=== PATIENT | female | born 1960 | race Caucasian/White ===

== ENCOUNTER 2017-01-02 09:20 | Emergency (ER) | payer BC ==
[~2017-01-02] VITALS: Ht 167.6 cm; Wt 85.0 kg
[~2017-01-02 09:20] MED LIST: IBUP-779 PO; SERT-112 PO
[2017-01-02 09:38] LABS: BASOPHILS % 1.1 % (0.0-2.0); EOSINOPHILS % 2.7 % (0.0-5.0); HEMATOCRIT. 39.7 % (36.0-48.0); HEMOGLOBIN. 13.4 g/dL (12.0-16.0); MEAN CORPUSCULAR HEMOGLOBIN 29.3 pg (28.0-32.0); MEAN CORPUSCULAR HGB CONC 33.6 g/dL (31.0-37.0); MEAN CORPUSCULAR VOLUME 87.2 fL (81.0-99.0); MEAN PLATELET VOLUME 8.2 fl (7.4-10.4); MONOCYTES % 6.8 % (2.0-8.0); NEUTROPHILS % 62.4 % (40.0-76.0); PLATELET 285 x1000/uL (130-400); RED BLOOD CELL COUNT 4.56 mill/uL (4.2-5.4); RED CELL DISTRIBUTION WIDTH 13.2 % (11.6-14.6); WHITE BLOOD COUNT 6.8 x1000/uL (4.5-11.0)
[2017-01-02 09:52] LABS: ALANINE AMINOTRANSFERASE 59 IU/L (13-61); ALBUMIN 3.7 g/dL (3.4-5.0); ANION GAP 13; CALCIUM 8.8 mg/dL (8.5-10.1); CARBON DIOXIDE 26 mEq/L (21-32); CHLORIDE 105 mEq/L (98-107); INDEX HEMOLYSI 2 (1-3); INDEX ICTERIC 1 (1-4); INDEX LIPEMIC 1 (1-3); NT PRO B-TYPE NATRIURETIC PEP 56 pg/mL (5-125); TROPONIN I < 0.02 ng/mL (0.00-0.04); UREA NITROGEN BLOOD 13 mg/dL (7-21); eGFR > 60 mL/min (>60)
[2017-01-02 09:54] LABS: PROTHROMBIN TIME 10.4 sec
[2017-01-02 13:42] VITALS: BP 125/65
== END 2017-01-02 13:44 | disposition home or self-care (01) ==
LOC: ER 09:22
DX: R20.0 Anesthesia of skin (principal); H53.8 Other visual disturbances; R53.1 Weakness; Z88.5 Allergy status to narcotic agent; Z98.890 Other specified postprocedural states
CPT/HCPCS: 36415; 70450; 70551; 80053; 83880; 84484; 85025; 85610; 93005; 99285

== ENCOUNTER → 2017-03-18 | Outpatient (CLI) | payer BC ==
[2017-03-18 08:20] LABS: T4 FREE 0.77 ng/dL (0.76-1.46)
[2017-03-18 08:30] LABS: FOLIC ACID (FOLATE) SERUM 17.4 ng/mL (>5.38)
== END | disposition home or self-care (01) ==
LOC: LAB 07:08
PROVIDERS: ATTEND Psychiatry & Neurology Neurology
DX: G45.9 Transient cerebral ischemic attack, unspecified (principal)
CPT/HCPCS: 36415; 80061; 82607; 82746; 83036; 83540; 83550; 84439; 84481

== ENCOUNTER → 2017-04-07 | Outpatient (CLI) | payer BC ==
[2017-04-07 11:04] LABS: BASOPHILS % 0.9 % (0.0-2.0); EOSINOPHILS % 2.2 % (0.0-5.0); HEMATOCRIT. 38.4 % (36.0-48.0); LYMPHOCYTES % 26.6 % (20.0-50.0); MEAN CORPUSCULAR HEMOGLOBIN 29.2 pg (28.0-32.0); MEAN CORPUSCULAR VOLUME 86.4 fL (81.0-99.0); MEAN PLATELET VOLUME 7.8 fl (7.4-10.4); MONOCYTES % 5.1 % (2.0-8.0); NEUTROPHILS % 65.2 % (40.0-76.0); PLATELET 252 x1000/uL (130-400); RED BLOOD CELL COUNT 4.45 mill/uL (4.2-5.4); RED CELL DISTRIBUTION WIDTH 13.6 % (11.6-14.6)
[2017-04-07 11:24] LABS: C REACTIVE PROTEIN QUANT 4.3 mg/L (0.0-3.0)
[2017-04-08 15:12] LABS: ANTI-DNA DOUBLE STRANDED QUANT < 1 IU/mL (0-9); ANTI-NUCLEAR ANTIBODIES DIRECT Negative (Negative); ANTI-SCLERODERMA-70 AB <0.2 AI (0.0-0.9); RNP ANTIBODY < 0.2 AI (0.0-0.9); SJOGRENS ANTI SS-A < 0.2 AI (0.0-0.9); SJOGRENS ANTI SS-B < 0.2 AI (0.0-0.9); SMITH ABS < 0.2 AI (0.0-0.9)
[2017-04-09 13:12] LABS: ACTIN (SMOOTH MUSCLE) ANTIBODY 7 Units (0-19)
== END | disposition home or self-care (01) ==
LOC: MRI 10:05
PROVIDERS: ATTEND Psychiatry & Neurology Neurology
DX: G45.8 Other transient cerebral ischemic attacks and related syndromes (principal)
CPT/HCPCS: 36415; 70544; 80061; 81403; 81407; 81479; 85025; 85300; 85303; 85306; 85307; 85651; 86038; 86140; 86147; 87186; 93306; 93880

== ENCOUNTER → 2018-05-21 | Outpatient (CLI) | payer BC | END | disposition home or self-care (01) | LOC: MAMMO 07:55 | PROVIDERS: ATTEND Family Medicine | DX: Z12.31 Encounter for screening mammogram for malignant neoplasm of breast (principal) | CPT/HCPCS: 77067 ==

== ENCOUNTER → 2018-10-06 | Outpatient (CLI) | payer BC | END | disposition home or self-care (01) | LOC: RAD 16:32 | PROVIDERS: ATTEND Family Medicine | DX: R05 Cough (principal) | CPT/HCPCS: 71046 ==

== ENCOUNTER → 2019-05-05 | Outpatient (CLI) | payer BC | END | disposition home or self-care (01) | LOC: LAB 09:31 | PROVIDERS: ATTEND Family Medicine | DX: B19.20 Unspecified viral hepatitis C without hepatic coma (principal) | CPT/HCPCS: 87522 ==

== ENCOUNTER → 2019-05-25 | Outpatient (CLI) | payer BC | END | disposition home or self-care (01) | LOC: RAD 09:31 | PROVIDERS: ATTEND Family Medicine | DX: M79.644 Pain in right finger(s) (principal) | CPT/HCPCS: 73140 ==

== ENCOUNTER → 2019-07-19 | Outpatient (CLI) | payer BC | END | disposition home or self-care (01) | LOC: MAMMO 11:33 | PROVIDERS: ATTEND Family Medicine | DX: Z12.31 Encounter for screening mammogram for malignant neoplasm of breast (principal) | CPT/HCPCS: 77067 ==

== ENCOUNTER → 2020-07-10 | Outpatient (CLI) | payer BC | END | disposition home or self-care (01) | LOC: LAB 07:58 | PROVIDERS: ATTEND Family Medicine | DX: Z20.828 Contact with and (suspected) exposure to other viral communicable diseases (principal) | CPT/HCPCS: C9803; U0003 ==

== ENCOUNTER → 2020-07-19 | Outpatient (CLI) | payer BC | END | disposition home or self-care (01) | LOC: MAMMO 07-12 08:07 | PROVIDERS: ATTEND Family Medicine | DX: Z12.31 Encounter for screening mammogram for malignant neoplasm of breast (principal) | CPT/HCPCS: 77067 ==

== ENCOUNTER → 2020-11-28 | Outpatient (CLI) | payer BC | END | disposition home or self-care (01) | LOC: RAD 08:24 | PROVIDERS: ATTEND Family Medicine | DX: M25.561 Pain in right knee (principal) | CPT/HCPCS: 73562 ==

== ENCOUNTER → 2021-11-20 | Outpatient (CLI) | payer BC | END | disposition home or self-care (01) | LOC: MAMMO 09:26 | PROVIDERS: ATTEND Family Medicine | DX: Z12.31 Encounter for screening mammogram for malignant neoplasm of breast (principal); R93.89 Abnormal findings on diagnostic imaging of other specified body structures; N83.201 Unspecified ovarian cyst, right side; N83.202 Unspecified ovarian cyst, left side | CPT/HCPCS: 76830; 76856; 77067 ==

== ENCOUNTER → 2022-06-11 | Outpatient (CLI) | payer BC ==
[2022-06-11 11:21] LABS: EOSINOPHILS % 1.9 % (0.0-5.0); HEMATOCRIT. 39.4 % (36.0-48.0); HEMOGLOBIN. 13.5 g/dL (12.0-16.0); LYMPHOCYTES % 21.8 % (20.0-50.0); MEAN CORPUSCULAR HEMOGLOBIN 30.5 pg (28.0-32.0); MEAN CORPUSCULAR VOLUME 89.2 fL (81.0-99.0); MEAN PLATELET VOLUME 7.6 fl (7.4-10.4); MONOCYTES % 6.1 % (2.0-8.0); NEUTROPHILS % 69.2 % (40.0-76.0); PLATELET 290 x1000/uL (130-400); RED BLOOD CELL COUNT 4.41 mill/uL (4.2-5.4); RED CELL DISTRIBUTION WIDTH 12.8 % (11.6-14.6)
[2022-06-11 11:35] LABS: CHLORIDE 106 mEq/L (98-107)
[2022-06-11 11:52] LABS: HDL CHOLESTEROL 69 mg/dL (40-59); LDL CHOLESTEROL 132 mg/dL (5-100)
== END | disposition home or self-care (01) ==
LOC: LAB 10:45
PROVIDERS: ATTEND Family Medicine
DX: E55.9 Vitamin D deficiency, unspecified (principal)
CPT/HCPCS: 36415; 80053; 80061; 82306; 84443; 85025

== ENCOUNTER → 2022-12-09 | Outpatient (CLI) | payer BC | END | disposition home or self-care (01) | LOC: MAMMO 08:08 | PROVIDERS: ATTEND Family Medicine | DX: Z12.31 Encounter for screening mammogram for malignant neoplasm of breast (principal) | CPT/HCPCS: 77067 ==

== ENCOUNTER → 2023-01-20 | Outpatient (CLI) | payer BC ==
[2023-01-20 09:52] LABS: EOSINOPHILS % 2.2 % (0.0-5.0); HEMATOCRIT. 38.9 % (36.0-48.0); HEMOGLOBIN. 13.3 g/dL (12.0-16.0); LYMPHOCYTES % 27.7 % (20.0-50.0); MEAN CORPUSCULAR HEMOGLOBIN 30.5 pg (28.0-32.0); MEAN CORPUSCULAR VOLUME 89.2 fL (81.0-99.0); MEAN PLATELET VOLUME 7.3 fl (7.4-10.4); MONOCYTES % 5.9 % (2.0-8.0); NEUTROPHILS % 63.2 % (40.0-76.0); PLATELET 341 x1000/uL (130-400); RED BLOOD CELL COUNT 4.37 mill/uL (4.2-5.4); RED CELL DISTRIBUTION WIDTH 13.1 % (11.6-14.6)
[2023-01-20 10:20] LABS: CHLORIDE 106 mEq/L (98-107)
[2023-01-20 10:34] LABS: HDL CHOLESTEROL 58 mg/dL (40-59); LDL CHOLESTEROL 129 mg/dL (5-100); T4 FREE 0.79 ng/dL (0.76-1.46)
== END | disposition home or self-care (01) ==
LOC: LAB 08:50
PROVIDERS: ATTEND Specialist
DX: I08.0 Rheumatic disorders of both mitral and aortic valves (principal); R94.31 Abnormal electrocardiogram [ECG] [EKG]; I11.9 Hypertensive heart disease without heart failure; E78.2 Mixed hyperlipidemia
CPT/HCPCS: 36415; 80053; 80061; 82306; 83036; 84439; 84443; 84480; 85025; 93307

== ENCOUNTER 2023-02-12 07:37 | Emergency (ER) | payer BC ==
[~2023-02-12] VITALS: Ht 162.6 cm; Wt 77.0 kg
[2023-02-12 09:25] VITALS: BP 145/80
[2023-02-12 09:28] LABS: EOSINOPHILS % 2.4 % (0.0-5.0); HEMATOCRIT. 40.1 % (36.0-48.0); HEMOGLOBIN. 13.8 g/dL (12.0-16.0); LYMPHOCYTES % 29.7 % (20.0-50.0); MEAN CORPUSCULAR HEMOGLOBIN 30.7 pg (28.0-32.0); MEAN CORPUSCULAR VOLUME 89.4 fL (81.0-99.0); MEAN PLATELET VOLUME 8.4 fl (7.4-10.4); MONOCYTES % 6.3 % (2.0-8.0); NEUTROPHILS % 60.6 % (40.0-76.0); PLATELET 295 x1000/uL (130-400); RED BLOOD CELL COUNT 4.48 mill/uL (4.2-5.4)
[2023-02-12 09:32] LABS: CHLORIDE 105 mEq/L (98-107)
== END 2023-02-12 09:27 | disposition home or self-care (01) ==
LOC: ER 07:37
DX: R07.89 Other chest pain (principal); Z98.890 Other specified postprocedural states
CPT/HCPCS: 36415; 80048; 84484; 85025; 99283; Z7610

== ENCOUNTER → 2023-05-12 | Outpatient (CLI) | payer OTHER | END | disposition home or self-care (01) | LOC: MRI 10:59 | PROVIDERS: ATTEND Family Medicine Adult Medicine | DX: S46.912A Strain of unspecified muscle, fascia and tendon at shoulder and upper arm level, left arm, initial encounter (principal); M19.011 Primary osteoarthritis, right shoulder; M75.52 Bursitis of left shoulder; M65.812 Other synovitis and tenosynovitis, left shoulder; X58.XXXA Exposure to other specified factors, initial encounter; Y93.89 Activity, other specified; Y92.89 Other specified places as the place of occurrence of the external cause; Y99.8 Other external cause status | CPT/HCPCS: 73221 ==

== ENCOUNTER → 2023-11-19 | Outpatient (CLI) | payer OTHER | END | disposition home or self-care (01) | LOC: MRI 09:11 | DX: S46.912A Strain of unspecified muscle, fascia and tendon at shoulder and upper arm level, left arm, initial encounter (principal); S43.082A Other subluxation of left shoulder joint, initial encounter; M75.42 Impingement syndrome of left shoulder; X58.XXXA Exposure to other specified factors, initial encounter; Y93.89 Activity, other specified; Y92.89 Other specified places as the place of occurrence of the external cause; Y99.8 Other external cause status | CPT/HCPCS: 73221 ==

== ENCOUNTER → 2024-02-26 | Outpatient (CLI) | payer BC ==
[2024-02-26 08:02] LABS: CHLORIDE 106 mEq/L (98-107); POTASSIUM 4.4 mEq/L (3.5-5.1); SODIUM 138 mEq/L (136-145)
[2024-02-26 08:03] LABS: CALCIUM 9.5 mg/dL (8.7-10.4); CARBON DIOXIDE 26 mEq/L (21-32)
[2024-02-26 08:08] LABS: CREATININE 0.7 mg/dL (0.6-1.0); GLUCOSE 102 mg/dL (70-105); TRIGLYCERIDE 89 mg/dL (0-150); UREA NITROGEN BLOOD 10 mg/dL (9-23)
[2024-02-26 08:09] LABS: LDL CHOLESTEROL 127 mg/dL (5-100)
[2024-02-26 08:10] LABS: ALANINE AMINOTRANSFERASE 53 IU/L (10-49); ALBUMIN 4.4 g/dL (3.2-4.8); ASPARTATE AMINOTRANSFERASE 38 IU/L (<34); BILIRUBIN TOTAL 0.6 mg/dL (0.1-1.0); CHOLESTEROL 206 mg/dL (<200); HDL CHOLESTEROL 63 mg/dL (>65); PROTEIN TOTAL 6.9 g/dL (6.0-8.3)
[2024-02-26 08:12] LABS: EOSINOPHILS % 2.1 % (0.0-5.0); HEMATOCRIT. 41.6 % (36.0-48.0); LYMPHOCYTES % 24.8 % (20.0-50.0); MEAN CORPUSCULAR HEMOGLOBIN 30.4 pg (28.0-32.0); MEAN CORPUSCULAR HGB CONC 33.6 g/dL (31.0-37.0); MEAN CORPUSCULAR VOLUME 90.6 fL (81.0-99.0); MEAN PLATELET VOLUME 8.1 fl (7.4-10.4); MONOCYTES % 6.5 % (2.0-8.0); NEUTROPHILS % 65.6 % (40.0-76.0); PLATELET 299 x1000/uL (130-400); RED CELL DISTRIBUTION WIDTH 13.2 % (11.6-14.6); WHITE BLOOD COUNT 6.3 x1000/uL (4.5-11.0)
[2024-02-26 08:13] LABS: THYROID STIMULATING HORMONE 1.99 uIU/mL (0.55-4.78)
== END | disposition home or self-care (01) ==
LOC: MAMMO 07:05
PROVIDERS: ATTEND Family Medicine
DX: Z12.31 Encounter for screening mammogram for malignant neoplasm of breast (principal); R73.9 Hyperglycemia, unspecified; E78.00 Pure hypercholesterolemia, unspecified; M54.9 Dorsalgia, unspecified; R92.323 Mammographic fibroglandular density, bilateral breasts
CPT/HCPCS: 36415; 77063; 77067; 80053; 80061; 83036; 84443; 85025

== ENCOUNTER 2025-06-22 09:31 | Inpatient (IN) | payer BC, OTHER ==
[~2025-06-22] VITALS: Ht 160 cm; Wt 83.0 kg
[2025-06-22] MEDS: FAMOTIDINE 20MG/2ML VIAL IV NR (09:57)
[2025-06-22] MEDS: ASPIRIN 325MG TABLET PO NR (09:57)
[2025-06-22 10:03] LABS: BASOPHILS % 1.0 % (0.0-2.0); EOSINOPHILS % 1.5 % (0.0-5.0); HEMATOCRIT. 42.6 % (36.0-48.0); HEMOGLOBIN. 14.1 g/dL (12.0-16.0); LYMPHOCYTES % 26.0 % (20.0-50.0); MEAN PLATELET VOLUME 8.1 fl (7.4-10.4); MONOCYTES % 4.4 % (2.0-8.0); NEUTROPHILS % 67.1 % (40.0-76.0); PLATELET 293 x1000/uL (130-400); RED BLOOD CELL COUNT 4.73 mill/uL (4.2-5.4); RED CELL DISTRIBUTION WIDTH 13.3 % (11.6-14.6)
[2025-06-22 10:29] LABS: CREATININE 0.7 mg/dL (0.6-1.0); UREA NITROGEN BLOOD 9 mg/dL (9-23)
[2025-06-22 10:31] LABS: TROPONIN I HIGH SENSITIVITY < 4 ng/L (3.0-34)
[2025-06-22 12:05] LABS: CLARITY URINE CLEAR (CLEAR); COLOR URINE STRAW (YELLOW)
[2025-06-22 12:09] LABS: GLUCOSE URINE NEGATIVE (NEGATIVE); KETONES URINE NEGATIVE (NEGATIVE); NITRITE URINE NEGATIVE (NEGATIVE); OCCULT BLOOD URINE NEGATIVE (NEGATIVE); PH URINE 6.0 (4.5-8.0); PROTEIN URINE NEGATIVE (NEGATIVE); SPECIFIC GRAVITY URINE 1.004 (1.005-1.030)
[2025-06-22 12:10] LABS: LEUKOCYTE ESTERASE URINE NEGATIVE (NEGATIVE); UROBILINOGEN URINE 0.2 E.U./dL (0.2-1.0)
[2025-06-22] MEDS ORDERED: ACETAMINOPHEN 325MG TABLET PO PRN (12:15)
[2025-06-22] MEDS ORDERED: DEXTROSE 50% WATER 50ML SYRINGE IV PRN (12:15)
[2025-06-22] MEDS ORDERED: ONDANSETRON HCL 4MG/2ML INJ IV PRN (12:15)
[2025-06-22] MEDS ORDERED: IPRATROPIUM/ALBUTEROL 0.5-3(2.5)MG/3ML NEB HHN PRN (12:15)
[2025-06-22] MEDS ORDERED: HYDRALAZINE 20MG/ML VIAL IV PRN (12:30)
[2025-06-22] MEDS: BLOOD SUGAR DIAGNOSTIC STRIP TEST SCH (12:47)
[2025-06-22 13:00] VITALS: BP 143/64; PULSE 57; RESP 18; TEMP 36.3; TEMP 36.3068; O2SAT 99
[2025-06-22] MEDS ORDERED: NITROGLYCERIN 0.4MG TABLET SL SL PRN (13:30)
[2025-06-22] MEDS: AMLODIPINE 10MG TABLET PO NR (14:14)
[2025-06-22] MEDS: PANTOPRAZOLE SODIUM 40 MG/VIAL IV SCH (14:14)
[2025-06-22] MEDS ORDERED: PNEUMOCOCCAL 20-VAL CONJ-DIP CRM 0.5ML IM ONE (14:45)
[2025-06-22 16:00] VITALS: BP 145/68; PULSE 62; RESP 15; TEMP 36.3; O2SAT 97
[2025-06-22 20:00] VITALS: BP 110/57; PULSE 64; RESP 20; TEMP 36.2; O2SAT 100
[2025-06-22 20:41] LABS: CREATINE KINASE MB FRACTION 1.3 ng/mL (0.5-3.6); TROPONIN I HIGH SENSITIVITY < 4 ng/L (3.0-34)
[2025-06-22] MEDS: ACETAMINOPHEN 325MG TABLET PO PRN (23:05)
[2025-06-23] VITALS: BP 104/59; PULSE 58; RESP 20; TEMP 36.2
[2025-06-23 01:46] LABS: CREATINE KINASE MB FRACTION 1.3 ng/mL (0.5-3.6); TROPONIN I HIGH SENSITIVITY < 4 ng/L (3.0-34)
[2025-06-23 04:00] VITALS: BP 119/63; PULSE 64; RESP 20; TEMP 36.3; O2SAT 100
[2025-06-23 07:59] LABS: *AMPHETAMINES SCREEN URINE NEGATIVE (NEGATIVE)
[2025-06-23 08:00] VITALS: BP 122/74; PULSE 72; RESP 18; TEMP 35.6; O2SAT 96
[2025-06-23 08:00] LABS: *BARBITURATES SCREEN URINE NEGATIVE (NEGATIVE); *BENZODIAZEPINES SCREEN URINE NEGATIVE (NEGATIVE); *COCAINE SCREEN URINE NEGATIVE (NEGATIVE)
[2025-06-23 08:01] LABS: CANNABINOID URINE SCREEN NEGATIVE (NEGATIVE); ECSTASY MDMA SCREEN URINE NEGATIVE (NEGATIVE); METHADONE URINE SCREEN NEGATIVE (NEGATIVE); OPIATES URINE SCREEN NEGATIVE (NEGATIVE); PHENCYCLIDINE URINE SCREEN NEGATIVE (NEGATIVE)
[2025-06-23 08:15] LABS: BASOPHILS % 0.9 % (0.0-2.0); EOSINOPHILS % 2.2 % (0.0-5.0); HEMATOCRIT. 41.5 % (36.0-48.0); HEMOGLOBIN. 13.8 g/dL (12.0-16.0); LYMPHOCYTES % 24.8 % (20.0-50.0); MEAN PLATELET VOLUME 8.3 fl (7.4-10.4); MONOCYTES % 6.4 % (2.0-8.0); NEUTROPHILS % 65.7 % (40.0-76.0); PLATELET 257 x1000/uL (130-400); RED BLOOD CELL COUNT 4.59 mill/uL (4.2-5.4); RED CELL DISTRIBUTION WIDTH 13.3 % (11.6-14.6)
[2025-06-23 08:29] LABS: T4 FREE 1.22 ng/dL (0.89-1.76)
[2025-06-23 08:31] LABS: CREATININE 0.7 mg/dL (0.6-1.0)
[2025-06-23 08:32] LABS: LDL CHOLESTEROL 129 mg/dL (5-100); TRIGLYCERIDE 106 mg/dL (0-150); UREA NITROGEN BLOOD 9 mg/dL (9-23)
[2025-06-23 08:34] LABS: PHOSPHORUS 4.0 mg/dL (2.5-4.9)
[2025-06-23] MEDS: AMLODIPINE 10MG TABLET PO SCH (09:26)
[2025-06-23 12:00] VITALS: BP 120/64; PULSE 60; RESP 18; TEMP 35.8; O2SAT 100
[2025-06-23 16:00] VITALS: BP 112/61; PULSE 68; RESP 18; TEMP 36.1; O2SAT 98
[2025-06-23 20:00] VITALS: BP 108/62; PULSE 72; RESP 22; TEMP 35.6; O2SAT 99
[2025-06-24] VITALS: BP 118/61; PULSE 67; RESP 17; TEMP 36.6; O2SAT 98
[2025-06-24 04:00] VITALS: BP 126/61; PULSE 17; RESP 18; TEMP 36.2; O2SAT 97
[2025-06-24 08:00] VITALS: BP 133/81; PULSE 79; RESP 18; TEMP 36.1; O2SAT 98
[2025-06-24 11:18] VITALS: BP 122/75; PULSE 72; RESP 18; TEMP 97.8
== END 2025-06-24 11:50 | disposition home or self-care (01) | DRG 313 ==
LOC: ER 09:39 → 6WST 11:20 → ENRESERV 12:20
PROVIDERS: ADMIT Student in an Organized Health Care Education/Training Program; ATTEND Student in an Organized Health Care Education/Training Program
DX: R07.89 Other chest pain (principal); E11.9 Type 2 diabetes mellitus without complications; E78.5 Hyperlipidemia, unspecified; G89.29 Other chronic pain; Z82.49 Family history of ischemic heart disease and other diseases of the circulatory system; Z88.5 Allergy status to narcotic agent; I10 Essential (primary) hypertension
CPT/HCPCS: 36415; 71045; 80048; 80061; 80305; 81003; 82550; 82553; 82962; 83036; 83735; 84100; 84439; 84443; 84484; 85025; 93005; 93306; 93970; 99285; J1308; J2470